=== PATIENT | male | born 1950 | race Hispanic/Latino ===

== ENCOUNTER → 2023-07-13 | Outpatient (REF) | payer MEDICARE ==
[~2023-07-13] MED LIST: ENALAPRIL MALEA20 MG PO; IBUPROFEN800 MG PO; METFORMIN HCL500 MG PO; OMEPRAZOLE40 MG PO; ONE-A-DAY ESSE1 EACH; PRAVASTATIN SOD40 MG PO
== END ==
LOC: EDSTATUS 08:00 → RESP 08:06
PROVIDERS: ATTEND Nurse Practitioner Family
DX: R06.02 Shortness of breath (principal); Z87.891 Personal history of nicotine dependence
CPT/HCPCS: 94060; 94727; 94729

== ENCOUNTER → 2024-05-16 | Outpatient (REF) | payer MEDICARE | LOC: CT 13:20 | PROVIDERS: ATTEND Nurse Practitioner Family | DX: J42 Unspecified chronic bronchitis (principal); Z87.891 Personal history of nicotine dependence | CPT/HCPCS: 71250 ==